=== PATIENT | female | born 1990 | race Caucasian/White ===

== ENCOUNTER 2022-10-25 08:10 | Inpatient (IN) | payer OTHER ==
[2022-10-24 11:48] LABS: Hemoglobin 12.4 g/dL (12.0-15.5); Platelet Count 247 10x3/uL (150-450)
[2022-10-24 12:18] LABS: Hep B Surf Ag Non-Reactive S/CO (NonReactive); Syphilis Antibody Nonreactive (Nonreactive); Syphilis Antibody Index 0.07 S/CO (<1.00 Non-Reactive)
[2022-10-25 09:59] VITALS: BMI 35.5
[2022-10-25] MEDS ORDERED: CEFAZOLIN 2 GM VIAL ONE (10:59)
[2022-10-25] MEDS ORDERED: Famotidine/PF 20 mg/2ml Vial ONE (11:00)
[2022-10-25] MEDS ORDERED: Promethazine HCl 25 MG/ML VIAL IM PRN ×2 (11:18→12:36)
[2022-10-25] MEDS ORDERED: Bicitra 30 ML UDCUP PO PRN (11:18)
[2022-10-25] MEDS ORDERED: Famotidine/PF 20 mg/2ml Vial SLOW IVP PRN (11:18)
[2022-10-25] MEDS ORDERED: Ondansetron PF 4 MG/2 ML Vial IVP PRN ×2 (11:18→12:36)
[2022-10-25] MEDS ORDERED: Diphenoxylate HCl/Atropine Tablet PO PRN ×2 (11:18)
[2022-10-25] MEDS ORDERED: Misoprostol 200 MCG TAB PR PRN (11:18)
[2022-10-25] MEDS ORDERED: Tranexamic Acid 1,000 MG/10 ML VIAL IVP PRN (11:18)
[2022-10-25] MEDS ORDERED: Methylergonovine 0.2 MG/ML VIAL IM PRN (11:18)
[2022-10-25] MEDS ORDERED: hydrALAZINE 20 MG/ML VIAL SLOW IVP PRN ×2 (11:18→15:55)
[2022-10-25] MEDS ORDERED: Carboprost 250 MCG/ML AMP IM PRN (11:18)
[2022-10-25] MEDS ORDERED: Lactated Ringer's 1,000 ML IV SCH (11:30)
[2022-10-25] MEDS ORDERED: CEFAZOLIN 2 GM in Sodium Chloride 0.9% 100 ML IVPB SCH (11:30)
[2022-10-25] MEDS ORDERED: NS w/ Oxytocin 30 units 500 ML IV SCH (11:30)
[2022-10-25] MEDS ORDERED: Dexamethasone 4 mg/ml Vial ONE (12:33)
[2022-10-25] MEDS ORDERED: Oxytocin 10 UNITS/ML VIAL ONE (12:33)
[2022-10-25] MEDS ORDERED: Ondansetron PF 4 MG/2 ML Vial ONE ×2 (12:33→15:24)
[2022-10-25] MEDS ORDERED: Ketorolac Tromethamine 30 MG/ML VIAL ONE (12:33)
[2022-10-25] MEDS ORDERED: Morphine PF 10 MG/10 ML VIAL ONE (12:33)
[2022-10-25] MEDS ORDERED: Promethazine HCl 25 MG SUPP PR PRN (12:36)
[2022-10-25] MEDS ORDERED: Moisturizing Cream (Eucerin) 113 GM JAR TOP PRN (12:36)
[2022-10-25] MEDS ORDERED: Naloxone HCl 0.4 mg/ml Vial IVP PRN ×2 (12:36)
[2022-10-25] MEDS ORDERED: Ondansetron HCl/PF 4 MG/2 ML Vial IVP PRN (12:36)
[2022-10-25] MEDS ORDERED: Naloxone HCl 0.4 mg/ml Vial IV PRN (12:36)
[2022-10-25] MEDS ORDERED: Fentanyl 100 MCG/2 ML VIAL SLOW IVP PRN (12:36)
[2022-10-25] MEDS ORDERED: Meperidine HCl/PF 25 MG/ML VIAL SLOW IVP PRN (12:36)
[2022-10-25] MEDS ORDERED: Communication Order-Pharmacy FS SCH (12:45)
[2022-10-25] MEDS ORDERED: Ketorolac Tromethamine 30 MG/ML VIAL IVP SCH (12:45)
[2022-10-25] MEDS ORDERED: Lanolin Ointment 7 GM TUBE TOP PRN (15:55)
[2022-10-25] MEDS ORDERED: Bisacodyl 10 MG SUPP PR PRN (15:55)
[2022-10-25] MEDS ORDERED: Boostrix 0.5 ML (Tdap) VIAL (>/=7 yrs of age) IM ONE (15:55)
[2022-10-25] MEDS: Labetalol HCl 100 MG TAB PO SCH (21:09)
[2022-10-25] MEDS: Docusate 100 MG CAP PO SCH (21:09)
[2022-10-25] MEDS: Ketorolac Tromethamine 30 MG/ML VIAL IVP PRN (21:09)
[2022-10-26] MEDS: Ferrous Sulfate 325 MG TAB PO SCH ×3 (00:59→21:25)
[2022-10-26] MEDS: Ketorolac Tromethamine 30 MG/ML VIAL IVP PRN ×2 (03:59→13:04)
[2022-10-26 04:07] LABS: Hemoglobin 10.6 g/dL (12.0-15.5); Mean Corpuscular HGB CONC 33.1 g/dL (32.0-36.0); Mean Corpuscular Hemoglobin 29.1 pg (27.0-33.0); Mean Corpuscular Volume 87.9 fl (81.6-98.3); Mean Platelet Volume 11.1 fl (7.4-10.4); Platelet Count 216 10x3/uL (150-450); RBC Distribution Width 12.3 % (11.5-14.5); Red Blood Cell (RBC) Count 3.64 10x6/uL (3.90-5.03); White Blood Cell (WBC) Count 12.3 10x3/uL (3.5-10.5)
[2022-10-26] MEDS ORDERED: HYDROcodone/Acetaminophen 5/325 mg Tablet PO PRN (06:00)
[2022-10-26] MEDS: diphenhydrAMINE 50 MG/ML VIAL IVP PRN ×2 (08:36→13:05)
[2022-10-26] MEDS: Labetalol HCl 100 MG TAB PO SCH ×2 (08:36→21:26)
[2022-10-26] MEDS: Docusate 100 MG CAP PO SCH ×2 (08:37→21:25)
[2022-10-26] MEDS: Prenatal Vitamin 1 TAB PO SCH (08:37)
[2022-10-26] MEDS: HYDROcodone/Acetaminophen 5/325 mg Tablet PO PRN ×4 (08:42→22:43)
[2022-10-26] MEDS: Ibuprofen 800 MG TAB PO SCH (21:25)
[2022-10-26] MEDS: Simethicone Chewable 80 MG TAB PO PRN (21:26)
[2022-10-27] MEDS: HYDROcodone/Acetaminophen 5/325 mg Tablet PO PRN ×2 (04:23→08:56)
[2022-10-27] MEDS: Ibuprofen 800 MG TAB PO SCH (05:54)
[2022-10-27] MEDS: Simethicone Chewable 80 MG TAB PO PRN (05:55)
[2022-10-27] MEDS: Docusate 100 MG CAP PO SCH (08:53)
[2022-10-27] MEDS: Labetalol HCl 100 MG TAB PO SCH (08:53)
[2022-10-27] MEDS: Ferrous Sulfate 325 MG TAB PO SCH (08:54)
[2022-10-27] MEDS: Prenatal Vitamin 1 TAB PO SCH (08:54)
[2022-10-27 08:59] VITALS: BP 130/85; TEMP 98.1
== END 2022-10-27 11:00 | disposition home or self-care (01) | DRG 787 ==
LOC: CSHLD 08:10 → CSHPED 14:30
PROVIDERS: ADMIT Obstetrics & Gynecology; ATTEND Obstetrics & Gynecology
PROC: 10D00Z1 Extraction of Products of Conception, Low, Open Approach (ICD-10-PCS; principal; 2022-10-25)
DX: O34.211 Maternal care for low transverse scar from previous cesarean delivery (principal); O10.92 Unspecified pre-existing hypertension complicating childbirth; O24.420 Gestational diabetes mellitus in childbirth, diet controlled; Z37.0 Single live birth; Z3A.38 38 weeks gestation of pregnancy
CPT/HCPCS: 51702; 85014; 85018; 85027; 85049; 86780; 86850; 86900; 86901; 87340; J1100; J1200; J1885; J2274; J2405; J2590